=== PATIENT | female | born 1950 | race Caucasian/White ===

== ENCOUNTER → 2017-10-19 | Outpatient (CLI) | payer MEDICARE, MEDICAID ==
[~2017-10-19] VITALS: Ht 157.5 cm; Wt 83.5 kg
[~2017-10-19] MED LIST: AMLO-511 PO; ASPI-556 PO; ATOR40TA28 PO; CARV25 PO; FURO-152 PO; GABA-529 PO; INSLAN SQ; INSU100V SQ; ISOS60TA4 PO; LEVO137T2 PO; LISI-618 PO; METF10004 PO; METO-391 PO; NIAC500C3 PO; NITR0.4T SL; NORTRIPTYLINE PO; POTA8TAB4 PO; RANO500T3 PO; RIVA20TA PO
[2017-10-19 11:08] VITALS: BP 111/60
== END | disposition home or self-care (01) ==
LOC: SRCNTR 10:11
PROVIDERS: ATTEND Internal Medicine Clinical Cardiac Electrophysiology
DX: Z45.02 Encounter for adjustment and management of automatic implantable cardiac defibrillator (principal); I11.0 Hypertensive heart disease with heart failure; I50.9 Heart failure, unspecified; E78.5 Hyperlipidemia, unspecified; E11.9 Type 2 diabetes mellitus without complications
CPT/HCPCS: G0463

== ENCOUNTER → 2017-10-24 | Outpatient (CLI) | payer MEDICARE, MEDICAID ==
[~2017-10-24] VITALS: Ht 160 cm; Wt 83.5 kg
[~2017-10-24] MED LIST changes: -ASPI-556 PO; -ATOR40TA28 PO; -INSU100V SQ; -LEVO137T2 PO; -METO-391 PO; -NIAC500C3 PO; -NORTRIPTYLINE PO
[2017-10-24 12:28] VITALS: BP 108/60
== END | disposition home or self-care (01) ==
LOC: SRCNTR 10:28
PROVIDERS: ATTEND Internal Medicine Clinical Cardiac Electrophysiology
DX: Z45.02 Encounter for adjustment and management of automatic implantable cardiac defibrillator (principal)
CPT/HCPCS: G0463